=== PATIENT | female | born 1945 | race Caucasian/White ===

== ENCOUNTER 2023-06-18 14:50 | Outpatient (OUT) | payer MEDICARE, OTHER, SELFPAY ==
--- NOTE | 2023-06-18 15:54 | PM.CN ---
Consult Note: HPI Data of Consult Patient: new to practice Consult date: 06/18/23 Requesting Physician: Bo Murray MD Primary Care Provider: Non-Staff Physician, Consult Narrative Reason for consult: low back, left leg pain Narrative: 77yof who presents for evaluation. longstanding low back and left leg radiating pain, greater than 1 year. has engaged in physical therapy, continues in chiropractic therapy, with minimal benefit. has had hip addressed with outside pain clinic previously, but this did not help significantly. lumbar mri reviewed, which is significant for facet arthropathy in lower lumbar spine, as well as stenosis at l4-5 and l5-s1. utilizes tramadol 50mg very sparingly. denies adverse med side effects. cc:: CC: Bo Murray MD Review of Systems ROS Status of ROS 10 or more systems reviewed and unremarkable except as noted in history and below Exam Narrative Exam Narrative: Psych-alert and oriented x 3. Attentive and appropriate, constitutionally normal, displays normal mood and affect per situation. There are no obvious deficits in memory, reasoning, or intellect.? Skin-no obvious rashes, bruising, erythema noted to the patient's area of pain.? Extremities- extremities are warm with minimal edema and palpable pulses. Lumbar-tenderness to palpation noted in the lumbar spine and paraspinal musculature. Pain is elicited with flexion, extension, and lateral rotation of the lumbar spine. Range of motion is diminished with these motions. Facet loading maneuvers are positive..? Strength-noted to be unremarkable with the exception of decreased strength rated at 4 out of 5 in left quadriceps femoris, anterior tibialis. Sensory-no notable sensory deficits in the bilateral lower extremities to touch or pinprick in all dermatomal distributions with the exception to decreased sensation to the left L4, 5 dermatomal distribution Sacroiliac joint-tenderness over left PSIS. Hiren's maneuver positive on the left. Thigh thrust positive on the left. Coordination remains intact.? Gait remains non-antalgic. Assessment and Plan Assessment and Plan (1) Lumbar stenosis with neurogenic claudication: (2) Lumbar spondylosis: (3) Sacroiliac joint dysfunction of left side: Plan 77yof who presents for evaluation. failed conservative measures, as noted. imaging reviewed, as noted. given symptoms and imaging, prudent to attempt left l4-5, l5-s1 transforaminal epidural steroid injection under fluoroscopic guidance. may even benefit from left block of the nerve innervating the sacroiliac joint. she is in agreement. medications reviewed. agreed to refill tramadol 50mg bid prn when she needs refill. she expressed understanding. follow up after procedure.
== END 2023-06-18 14:51 | disposition home or self-care (01) ==
LOC: PM 14:50
PROVIDERS: Visit Provider Anesthesiology
DX: M48.062 Spinal stenosis, lumbar region with neurogenic claudication (principal); M47.816 Spondylosis without myelopathy or radiculopathy, lumbar region; M53.3 Sacrococcygeal disorders, not elsewhere classified
CPT/HCPCS: G0463

== ENCOUNTER 2023-07-30 07:58 | Day surgery (SDC) | payer MEDICARE, OTHER, SELFPAY ==
[2023-07-30 08:31] VITALS: BP 162/71; PULSE 87; RESP 16; TEMP 36.2; O2SAT 99
[2023-07-30 09:04] VITALS: BP 193/79; PULSE 93; RESP 16; O2SAT 97
[2023-07-30 09:05] VITALS: BP 181/78; PULSE 88; RESP 18; O2SAT 96
[2023-07-30] MEDS: 0.9 % SODIUM CHLORIDE 10 ML INJ (09:05)
[2023-07-30] MEDS: IOHEXOL 240 MG/ML - 10 ML VIAL INJ (09:06)
[2023-07-30] MEDS: LIDOCAINE HCL 2% PF 100 MG/5 ML VIAL INJ (09:06)
[2023-07-30] MEDS: BUPIVACAINE HCL 0.25% PF 25 MG/10 ML VIAL INJ (09:06)
[2023-07-30] MEDS: TRIAMCINOLONE ACETONIDE 40 MG/ML VIAL INJ (09:06)
--- NOTE | 2023-07-30 09:09 | P.ON_ITS ---
Date of procedure: 07/30/23 Pre-op diagnosis: Lumbar stenosis with neurogenic claudication Post-op diagnosis: same as pre-op Procedure: Procedure: Left L4-5, L5-S1 transforaminal epidural steroid injection Medications: Bupivacaine 0.25% 2cc, kenalog 80mg The patient was seen and examined in the preoperative holding area.? Informed consent was obtained and placed on the chart.? Patient was brought to the medical procedure unit and placed in the prone position where a timeout was completed verifying the correct patient, procedure site, position, and planned special equipment using sterile aseptic technique.? Under direct fluoroscopic visualization a 25-gauge Quincke tipped spinal needle was advanced to the designated neural foramen where contrast dye was injected to show adequate spread.? The needle was inserted at level left L4-5. There was no evidence of vascular or adverse uptake.? Epidural spread was appreciated.? The above- mentioned injectate was then placed in a 1.5 mL aliquot preceded by negative aspiration.? The needle was removed. The needle was inserted and the procedure repeated at level left L5-S1.? The surgery site was covered.? Patient was taken to the postprocedural recovery area and monitored for an appropriate length of time before found suitable for discharge in the accompaniment of a responsible adult. Anesthesia: Local Surgeon: Bo Murray Pathology: none sent Condition: stable Disposition: no change
--- NOTE | 2023-07-30 10:53 | PC.NURSE ---
Patient had numb and weak legs upon standing in post op. She stayed awhile longer in wheelchair for them to improve and voiced relief upon standing before discharge. She had her come to pick her up instead of driving home as planned out of safety.
== END 2023-07-30 10:45 | disposition home or self-care (01) ==
PROVIDERS: Visit Provider Anesthesiology
DX: M48.062 Spinal stenosis, lumbar region with neurogenic claudication (principal)
CPT/HCPCS: 64483; 64484; J0665; J3301; Q9966

== ENCOUNTER 2023-08-13 09:14 | Day surgery (SDC) | payer MEDICARE, OTHER, SELFPAY ==
[2023-08-13 10:03] VITALS: BP 175/70; PULSE 70; RESP 16; TEMP 36.3; O2SAT 99
[2023-08-13 10:39] VITALS: RESP 20
[2023-08-13] MEDS: BUPIVACAINE HCL 0.25% PF 25 MG/10 ML VIAL 2 ML INJ (10:43)
[2023-08-13] MEDS: IOHEXOL 240 MG/ML - 10 ML VIAL INJ (10:44)
[2023-08-13] MEDS: LIDOCAINE HCL 2% PF 100 MG/5 ML VIAL INJ (10:44)
[2023-08-13] MEDS: TRIAMCINOLONE ACETONIDE 40 MG/ML VIAL 20 MG INJ (10:45)
--- NOTE | 2023-08-13 10:45 | W.PM.PROCNOT ---
Date of procedure: 08/13/23 Pre-op diagnosis: Sacroiliitis, left Post-op diagnosis: same as pre-op Procedure: Procedure: Left block of the nerve innervating the sacroiliac joint Medications: Bupivacaine 0.25% 3cc, kenalog 40mg After informed consent was obtained, the patient was brought to the medical procedure unit and placed in the prone position, when a timeout was completed verifying correct patient, procedure, site, positioning, implant, and/or special equipment.? The skin overlying the area was prepped and draped in standard sterile fashion using alcohol.? A 25-gauge needle was inserted towards the left nerve innervating the sacroiliac joint under direct fluoroscopic imaging.? Needle tip was advanced until the nerve was encountered.? We instilled a total of 3 mL of solution.? Postoperatively needles were removed.? The patient tolerated the procedure well without complication.? The patient reported reduction in pain symptoms postoperatively. Anesthesia: Local Surgeon: Bo Murray Pathology: none sent Condition: stable Disposition: no change
[2023-08-13 10:46] VITALS: BP 210/95; BP 234/105; PULSE 84; PULSE 91; O2SAT 95; O2SAT 96
== END 2023-08-13 10:50 | disposition home or self-care (01) ==
PROVIDERS: Visit Provider Anesthesiology
DX: M46.1 Sacroiliitis, not elsewhere classified (principal)
CPT/HCPCS: 64451; J0665; J3301; Q9966

== ENCOUNTER 2023-08-30 09:32 | Outpatient (OUT) | payer MEDICARE, OTHER, SELFPAY ==
--- NOTE | 2023-08-30 09:55 | P.CN_ITS ---
Consult Note: HPI Data of Consult Patient: known to practice within the last 3 years Consult date: 06/18/23 Requesting Physician: Dalia Mooney NP Primary Care Provider: Non-Staff Physician, MD Consult Narrative Reason for consult: low back, left leg pain Narrative: 77yof who presents for evaluation. longstanding low back and left leg radiating pain, greater than 1 year. has engaged in physical therapy, continues in chiropractic therapy, with minimal benefit. has had hip addressed with outside pain clinic previously, but this did not help significantly. lumbar mri reviewed, which is significant for facet arthropathy in lower lumbar spine, as well as stenosis at l4-5 and l5-s1. utilizes tramadol 50mg very sparingly. denies adverse med side effects. recently underwent left L4-5 L5-S1 TFESI and left SIJ injection with >90% ongoing pain relief and functional improvement. Today pain 1/10. Patient very pleased with the outcomes and her improvement, has noticed mild pain in right SIJ. cc:: CC: Dalia Mooney NP Review of Systems ROS Status of ROS 10 or more systems reviewed and unremark able except as noted in history and below Meds Home Medications and Allergies Home Medications Medication Instructions Recorded Confirmed Type levothyroxine 50 mcg capsule 50 mcg PO DAILY 06/18/23 08/13/23 History mesalamine 1.2 gram tablet,delayed 1.2 g PO BID 06/18/23 08/13/23 History release simvastatin 10 mg tablet 10 mg PO DAILY 06/18/23 08/13/23 History Allergies Allergy/AdvReac Type Severity Reaction Status Date / Time hydromorphone [From Dilaudid] Allergy Palpitation Verified 08/13/23 10:07 s latex Allergy Verified 08/13/23 10:07 Sulfa (Sulfonamide Allergy Verified 08/13/23 10:07 Antibiotics) Exam Constitutional Documenting provider has reviewed patient's vital signs: yes Common normals: no apparent distress, oriented x3, healthy appearing, alert and well nourished General appearance: cooperative HENMT Common normals: normocephalic, hearing grossly normal bilaterally and moist oral mucous membranes Head and scalp: normocephalic Eye Common normals: PERRL Pupil: PERRL Neck & C-Spine Common normals: full ROM General: normal visual inspection Chest Common normals: inspection of chest normal Respiratory Common normals: normal respiratory effort, no retractions and no use of accessory muscles Back & Pelvis Lumbar spine/lower back: normal to inspection, lumbar ROM normal and straight leg raise negative bilaterally Sacroiliac joints: SI joints normal Neuro Common normals: oriented x3, CN's II-XII intact bilaterally, moves all extremities, no focal motor deficits, no sensory deficits noted and deep tendon reflexes 2+ bilaterally Sensorium/orientation: alert Motor exam: strength 5/5 throughout and no movement abnormalities noted Psych Common normals: mental status grossly normal, thought process normal, cooperative, affect normal, speech normal and activity/motor behavior normal Speech: normal speech Thought process: normal thought process Results Additional Findings Additional findings: I have checked an [place] report on this patient today and there are no aberrancies noted in the prescribing history.?? A drug screen was completed and reviewed within the last year, and if there has not been a drug screen completed we ordered one today to monitor higher risk, state monitored pain medication use. As part of providing excellent, safe, comprehensive care, the following was completed at our patient's visit: 1. A medication reconciliation and review to ensure accurate knowledge of current/active medications, including asking our patients to inform us about any jrll-[id number] medications or herbal remedies/nutritional supplements/alternative remedies. 2. A review to specifically ensure our patients have had annual screening for: elevated body mass index (BMI), tobacco use, screening for depression, and screening for unhealthy alcohol use. When screening is concerning, patients are provided with education and the specific recommendation to discuss the concerning health issue and treatment options with their primary care provider. Assessment and Plan Assessment and Plan (1) Lumbar stenosis with neurogenic claudication: (2) Lumbar spondylosis: (3) Sacroiliac joint dysfunction of left side: Plan doing very well, continue tylenol as needed and HEP as tolerated f/u 3 months, sooner if needed
== END 2023-08-30 09:33 | disposition home or self-care (01) ==
LOC: PM 09:32
PROVIDERS: Visit Provider Nurse Practitioner
DX: M48.062 Spinal stenosis, lumbar region with neurogenic claudication (principal); M47.816 Spondylosis without myelopathy or radiculopathy, lumbar region; M53.3 Sacrococcygeal disorders, not elsewhere classified
CPT/HCPCS: G0463

== ENCOUNTER 2023-11-28 09:15 | Outpatient (OUT) | payer MEDICARE, OTHER, SELFPAY ==
--- NOTE | 2023-11-28 09:43 | P.CN_ITS ---
Consult Note: HPI Data of Consult Patient: known to practice within the last 3 years Consult date: 06/18/23 Requesting Physician: Dalia Mooney NP Primary Care Provider: Non-Staff Physician, MD Consult Narrative Reason for consult: low back, left leg pain Narrative: 77yof who presents for evaluation. longstanding low back and left leg radiating pain, greater than 1 year. has engaged in physical therapy, continues in chiropractic therapy, with minimal benefit. has had hip addressed with outside pain clinic previously, but this did not help significantly. lumbar mri reviewed, which is significant for facet arthropathy in lower lumbar spine, as well as stenosis at l4-5 and l5-s1. utilizes tramadol 50mg very sparingly. denies adverse med side effects. Prior left L4-5 L5-S1 TFESI and left SIJ injection with >90% ongoing pain relief and functional improvement. Today pain in low back 2/10 increasing to 4/10 in the morning and with long car rides, no radicular pain. cc:: CC: Dalia Mooney NP Review of Systems ROS Status of ROS 10 or more systems reviewed and unremark able except as noted in history and below Musculoskeletal Reports: back pain Meds Home Medications and Allergies Home Medications ?Medication ?Instructions ?Recorded ?Confirmed ?Type levothyroxine 50 mcg capsule 50 mcg PO DAILY 06/18/23 08/13/23 History mesalamine 1.2 gram tablet,delayed 1.2 g PO BID 06/18/23 08/13/23 History release simvastatin 10 mg tablet 10 mg PO DAILY 06/18/23 08/13/23 History Allergies Allergy/AdvReac Type Severity Reaction Status Date / Time hydromorphone [From Dilaudid] Allergy Palpitation Verified 08/13/23 10:07 s latex Allergy Verified 08/13/23 10:07 Sulfa (Sulfonamide Allergy Verified 08/13/23 10:07 Antibiotics) Exam Constitutional Documenting provider has reviewed patient's vital signs: yes Common normals: no apparent distress, oriented x3, healthy appearing, alert and well nourished General appearance: cooperative HENKY Common normals: normocephalic, hearing grossly normal bilaterally and moist oral mucous membranes Head and scalp: normocephalic Eye Common normals: PERRL Pupil: PERRL Neck & C-Spine Common normals: full ROM General: normal visual inspection Chest Common normals: inspection of chest normal Respiratory Common normals: normal respiratory effort, no retractions and no use of accessory muscles Back & Pelvis Lumbar spine/lower back: normal to inspection, lumbar ROM normal and straight leg raise negative bilaterally Sacroiliac joints: SI joints normal Other: negative facet loading negative radiculopathy sensation intact BLE strength 5/5 in BLE Neuro Common normals: oriented x3, CN's II-XII intact bilaterally, moves all extremities, no focal motor deficits, no sensory deficits noted and deep tendon reflexes 2+ bilaterally Sensorium/orientation: alert Motor exam: strength 5/5 throughout and no movement abnormalities noted Psych Common normals: mental status grossly normal, thought process normal, cooperative, affect normal, speech normal and activity/motor behavior normal Speech: normal speech Thought process: normal thought process Results Additional Findings Additional findings: If on a controlled substance or opioids, I have checked an [place] report on this patient and there are no aberrancies noted in the prescribing history.??If on a controlled substance or opioid a drug screen was completed and reviewed within the last year, and if there has not been a drug screen completed we ordered one today to monitor higher risk, state monitored pain medication use. As part of providing excellent, safe, comprehensive care, the following was completed at our patient's visit: 1. A medication reconciliation and review to ensure accurate knowledge of current/active medications, including asking our patients to inform us about any [id number] medications or herbal remedies/nutritional supplements/alternative remedies. 2. A review to specifically ensure our patients have had annual screening for screening for depression, screening for tobacco use, and screening for unhealthy alcohol use. For concerning screenings had a discussion with the patient, provided patient education, and recommended follow-up with primary care provider when appropriate. If patient noted with a risk of falling, they received education on strength, gait, and balance training to prevent future risk of falling. Assessment and Plan Assessment and Plan (1) Lumbar stenosis with neurogenic claudication: (2) Lumbar spondylosis: (3) Sacroiliac joint dysfunction of left side: Plan doing very well, continue tylenol as needed and HEP as tolerated f/u as needed
== END 2023-11-28 09:16 | disposition home or self-care (01) ==
LOC: PM 09:15
PROVIDERS: Visit Provider Nurse Practitioner
DX: M48.062 Spinal stenosis, lumbar region with neurogenic claudication (principal); M47.816 Spondylosis without myelopathy or radiculopathy, lumbar region; M53.3 Sacrococcygeal disorders, not elsewhere classified
CPT/HCPCS: G0463

== ENCOUNTER 2024-03-20 09:31 | Outpatient (OUT) | payer MEDICARE, OTHER, SELFPAY ==
--- NOTE | 2024-03-20 09:54 | P.CN_ITS ---
Consult Note: HPI Data of Consult Patient: known to practice within the last 3 years Consult date: 06/18/23 Requesting Physician: Dalia Mooney NP Primary Care Provider: Non-Staff Physician, MD Consult Narrative Reason for consult: low back, left leg pain Narrative: 77yof who presents for evaluation. longstanding low back and left leg radiating pain, greater than 1 year. has engaged in physical therapy, continues in chiropractic therapy, with minimal benefit. has had hip addressed with outside pain clinic previously, but this did not help significantly. lumbar mri reviewed, which is significant for facet arthropathy in lower lumbar spine, as well as stenosis at l4-5 and l5-s1. utilizes tramadol 50mg very sparingly. denies adverse med side effects. Prior left L4-5 L5-S1 TFESI and left SIJ injection provided >90% improvement greater than 3 months. Patient would like to discuss repeating as she feels this is wearing off, pain today 3/10 increasing to 8/10 with standing walking lifting bending and activity. cc:: CC: Dalia Mooney NP Review of Systems ROS Status of ROS 10 or more systems reviewed and unremark able except as noted in history and below Musculoskeletal Reports: back pain and extremity pain; Denies: extremity swelling, muscle cramps or muscle weakness Meds Home Medications and Allergies Home Medications ?Medication ?Instructions ?Recorded ?Confirmed ?Type levothyroxine 50 mcg capsule 50 mcg PO DAILY 06/18/23 08/13/23 History mesalamine 1.2 gram tablet,delayed 1.2 g PO BID 06/18/23 08/13/23 History release simvastatin 10 mg tablet 10 mg PO DAILY 06/18/23 08/13/23 History Allergies Allergy/AdvReac Type Severity Reaction Status Date / Time hydromorphone [From Dilaudid] Allergy Palpitation Verified 08/13/23 10:07 s latex Allergy Verified 08/13/23 10:07 Sulfa (Sulfonamide Allergy Verified 08/13/23 10:07 Antibiotics) Exam Narrative Exam Narrative: Psych-alert and oriented x 3. Attentive and appropriate, constitutionally normal, displays normal mood and affect per situation. There are no obvious deficits in memory, reasoning, or intellect.? Skin-no obvious rashes, bruising, erythema noted to the patient's area of pain.? Extremities- extremities are warm with minimal edema and palpable pulses. Lumbar-tenderness to palpation noted in the lumbar spine and paraspinal musculature. Pain is elicited with flexion, extension, and lateral rotation of the lumbar spine. Range of motion is diminished with these motions. Facet loading maneuvers are positive..? Strength-noted to be unremarkable with the exception of decreased strength rated at 4 out of 5 in left quadriceps femoris, anterior tibialis. Sensory-no notable sensory deficits in the bilateral lower extremities to touch or pinprick in all dermatomal distributions with the exception to decreased sensation to the left L4, 5 dermatomal distribution Sacroiliac joint-tenderness over left PSIS. Hiren's maneuver positive on the left. Thigh thrust positive on the left. Coordination remains intact.? Gait remains non-antalgic. Results Additional Findings Additional findings: If on a controlled substance or opioids, I have checked an [place] report on this patient and there are no aberrancies noted in the prescribing history.??If on a controlled substance or opioid a drug screen was completed and reviewed within the last year, and if there has not been a drug screen completed we ordered one today to monitor higher risk, state monitored pain medication use. As part of providing excellent, safe, comprehensive care, the following was completed at our patient's visit: 1. A medication reconciliation and review to ensure accurate knowledge of current/active medications, including asking our patients to inform us about any [id number] medications or herbal remedies/nutritional supplement s/alternative remedies. 2. A review to specifically ensure our patients have had annual screening for screening for depression, screening for tobacco use, and screening for unhealthy alcohol use. For concerning screenings had a discussion with the patient, provided patient education, and recommended follow-up with primary care provider when appropriate. If patient noted with a risk of falling, they received education on strength, gait, and balance training to prevent future risk of falling. Assessment and Plan Assessment and Plan (1) Lumbar stenosis with neurogenic claudication: (2) Sacroiliac joint dysfunction of left side: (3) Lumbar spondylosis: Plan repeat left L4-5 L5-S1 TFESI under fluoroscopy as previous injection provided >80% improvement greater than 3 months, risks vs benefits reviewed consider repeat left SIJ injection if pain persists continue medications as tolerated and needed f/u after left L4-5 L5-S1 TFESI complete
== END 2024-03-20 09:32 | disposition home or self-care (01) ==
LOC: PM 09:31
PROVIDERS: Visit Provider Nurse Practitioner
DX: M48.062 Spinal stenosis, lumbar region with neurogenic claudication (principal); M53.3 Sacrococcygeal disorders, not elsewhere classified; M47.816 Spondylosis without myelopathy or radiculopathy, lumbar region
CPT/HCPCS: G0463

== ENCOUNTER 2024-04-14 07:30 | Day surgery (SDC) | payer MEDICARE, OTHER, SELFPAY ==
[2024-04-14 08:01] VITALS: BP 126/68; PULSE 65; TEMP 36.6; O2SAT 100
[2024-04-14 08:29] VITALS: BP 198/86; PULSE 83; O2SAT 99
[2024-04-14] MEDS: TRIAMCINOLONE ACETONIDE 40 MG/ML VIAL 80 MG INJ (08:31)
[2024-04-14] MEDS: 0.9 % SODIUM CHLORIDE 10 ML SYRINGE - SALINE FLUSH INJ (08:31)
[2024-04-14] MEDS: BUPIVACAINE HCL 0.25% PF 25 MG/10 ML VIAL INJ (08:31)
[2024-04-14] MEDS: IOHEXOL 240 MG/ML - 10 ML VIAL INJ (08:32)
[2024-04-14 08:33] VITALS: BP 177/79; PULSE 75; O2SAT 99
[2024-04-14] MEDS: LIDOCAINE HCL 2% 400 MG/20 ML MDV 5 ML INJ (08:33)
--- NOTE | 2024-04-14 08:33 | P.ON_ITS ---
Date of procedure: 04/14/24 Pre-op diagnosis: Pain due to lumbar stenosis with neurogenic claudication Post-op diagnosis: same as pre-op Procedure: Procedure: Left L4-5, L5-S1 transforaminal epidural steroid injection Medications: Bupivacaine 0.25% 2cc, lidocaine 2% 1cc, kenalog 80mg The patient was seen and examined in the preoperative holding area.? Informed consent was obtained and placed on the chart.? Patient was brought to the medical procedure unit and placed in the prone position where a timeout was completed verifying the correct patient, procedure site, position, and planned special equipment using sterile aseptic technique.? Under direct fluoroscopic visualization a 25-gauge Quincke tipped spinal needle was advanced to the designated neural foramen where contrast dye was injected to show adequate spread.? The needle was inserted at level left L4-5. There was no evidence of vascular or adverse uptake.? Epidural spread was appreciated.? The above- mentioned injectate was then placed in a 1.5 mL aliquot preceded by negative aspiration.? The needle was removed. The needle was inserted and the procedure repeated at level left L5-S1.? The surgery site was covered.? Patient was taken to the postprocedural recovery area and monitored for an appropriate length of time before found suitable for discharge in the accompaniment of a responsible adult. Anesthesia: Local Surgeon: Bo Murray Pathology: none sent Condition: stable Disposition: no change
== END 2024-04-14 08:40 | disposition home or self-care (01) ==
LOC: SURGOUT 07:30
PROVIDERS: Visit Provider Anesthesiology
DX: M48.062 Spinal stenosis, lumbar region with neurogenic claudication (principal)
CPT/HCPCS: 64483; 64484; J0665; J3301; Q9966

== ENCOUNTER 2024-04-24 09:05 | Outpatient (OUT) | payer MEDICARE, OTHER, SELFPAY ==
--- NOTE | 2024-04-24 09:13 | P.CN_ITS ---
Consult Note: HPI Data of Consult Patient: known to practice within the last 3 years Consult date: 06/18/23 Requesting Physician: Dalia Mooney NP Primary Care Provider: Non-Staff Physician, MD Consult Narrative Reason for consult: low back, left leg pain Narrative: 78yof who presents for evaluation. longstanding low back and left leg radiating pain, greater than 1 year. has engaged in physical therapy, continues in chiropractic therapy, with minimal benefit. has had hip addressed with outside pain clinic previously, but this did not help significantly. lumbar mri reviewed, which is significant for facet arthropathy in lower lumbar spine, as well as stenosis at l4-5 and l5-s1. utilizes tramadol 50mg very sparingly. denies adverse med side effects. Recently underwent repeat left L4-5 L5-S1 TFESI with >90% improvement ongoing cc:: CC: Dalia Mooney NP Review of Systems ROS Status of ROS 10 or more systems reviewed and unremark able except as noted in history and below Musculoskeletal Denies: back pain, extremity pain or joint pain PFSH PFSH Medical History Hypothyroid ?E03.9 - Hypothyroidism, unspecified (ICD-10) Palpitations ?R00.2 - Palpitations (ICD-10) Surgical History History of tubal ligation ?Z98.51 - Tubal ligation status (ICD-10) Meds Home Medications and Allergies Home Medications ?Medication ?Instructions ?Recorded ?Confirmed ?Type levothyroxine 50 mcg capsule 50 mcg PO DAILY 06/18/23 04/14/24 History mesalamine 1.2 gram tablet,delayed 1.2 g PO BID 06/18/23 04/14/24 History release simvastatin 10 mg tablet 10 mg PO DAILY 06/18/23 04/14/24 History Allergies Allergy/AdvReac Type Severity Reaction Status Date / Time hydromorphone [From Dilaudid] Allergy Palpitation Verified 04/14/24 08:05 s latex Allergy Rash Verified 04/14/24 08:05 Sulfa (Sulfonamide Allergy Rash Verified 04/14/24 08:05 Antibiotics) Exam Narrative Exam Narrative: Psych-alert and oriented x 3. Attentive and appropriate, constitutionally normal, displays normal mood and affect per situation. There are no obvious deficits in memory, reasoning, or intellect.? Skin-no obvious rashes, bruising, erythema noted to the patient's area of pain.? Extremities- extremities are warm with minimal edema and palpable pulses. Lumbar-tenderness to palpation noted in the lumbar spine and paraspinal musculature. Pain is elicited with flexion, extension, and lateral rotation of the lumbar spine. Range of motion is diminished with these motions. Facet loading maneuvers are positive..? Strength-noted to be unremarkable Sensory-no notable sensory deficits in the bilateral lower extremities to touch or pinprick in all dermatomal distributions Coordination remains intact.? Gait remains non-antalgic. Results Additional Findings Additional findings: If on a controlled substance or opioids, I have checked an [place] report on this patient and there are no aberrancies noted in the prescribing history.??If on a controlled substance or opioid a drug screen was completed and reviewed within the last year, and if there has not been a drug screen completed we ordered one today to monitor higher risk, state monitored pain medication use. As part of providing excellent, safe, comprehensive care, the following was completed at our patient's visit: 1. A medication reconciliation and review to ensure accurate knowledge of current/active medications, including asking our patients to inform us about any innr-lpf-[id number] medications or herbal remedies/nutritional supplements/alternative remedies. 2. A review to specifically ensure our patients have had annual screening for screening for depression, screening for tobacco use, and screening for unhealthy alcohol use. For concerning screenings had a discussion with the patient, provided patient education, and recommended follow-up with primary care provider when appropriate. If patient noted with a risk of falling, they received education on strength, gait, and balance training to prevent future risk of falling. Assessment and Plan Assessment and Plan (1) Lumbar stenosis with neurogenic claudication: (2) Sacroiliac joint dysfunction of left side: (3) Lumbar spondylosis: Plan patient reports 100% improvement in pain and functional ability, no pain since injection continue PRN tylenol as needed continue HEP as tolerated f/u as needed
== END 2024-04-24 09:06 | disposition home or self-care (01) ==
LOC: PM 09:05
PROVIDERS: Visit Provider Nurse Practitioner
DX: M48.062 Spinal stenosis, lumbar region with neurogenic claudication (principal); M47.816 Spondylosis without myelopathy or radiculopathy, lumbar region; M53.3 Sacrococcygeal disorders, not elsewhere classified
CPT/HCPCS: G0463

== ENCOUNTER 2024-10-27 13:05 | Outpatient (OUT) | payer MEDICARE, OTHER, SELFPAY ==
--- NOTE | 2024-10-27 14:02 | P.CN_ITS ---
Consult Note: HPI Data of Consult Patient: known to practice within the last 3 years Consult date: 10/27/24 Requesting Physician: Bo Murray MD Primary Care Provider: Non-Staff Physician, Consult Narrative Reason for consult: low back, left leg pain Narrative: 79yof who presents for assessment. notes worsening pain from low back into left leg. same type of pain that she had previously, which was treated with lumbar tfesi. previously had significant relief of >50% for >3 months. imaging consistent with stenosis at l4-5 and l5-s1. continues to engage in a series of provider directed home exercises >6 weeks, without lasting benefit. uses otc pain meds. cc:: CC: Bo Murray MD Review of Systems ROS Status of ROS 10 or more systems reviewed and unremark able except as noted in history and below [facility] Medical History Hypothyroid ?E03.9 - Hypothyroidism, unspecified (ICD-10) Palpitations ?R00.2 - Palpitations (ICD-10) Surgical History History of tubal ligation ?Z98.51 - Tubal ligation status (ICD-10) Meds Home Medications and Allergies Home Medications ?Medication ?Instructions ?Recorded ?Confirmed ?Type levothyroxine 50 mcg capsule 50 mcg PO DAILY 06/18/23 04/14/24 History mesalamine 1.2 gram tablet,delayed 1.2 g PO BID 06/18/23 04/14/24 History release simvastatin 10 mg tablet 10 mg PO DAILY 06/18/23 04/14/24 History Allergies Allergy/AdvReac Type Severity Reaction Status Date / Time hydromorphone (From Dilaudid) Allergy Palpitation Verified 04/14/24 08:05 s latex Allergy Rash Verified 04/14/24 08:05 Sulfa (Sulfonamide Allergy Rash Verified 04/14/24 08:05 Antibiotics) Exam Narrative Exam Narrative: Psych-alert and oriented x 3. Attentive and appropriate, constitutionally normal, displays normal mood and affect per situation. There are no obvious deficits in memory, reasoning, or intellect.? Skin-no obvious rashes, bruising, erythema noted to the patient's area of pain.? Extremities- extremities are warm with minimal edema and palpable pulses. Lumbar-tenderness to palpation noted in the lumbar spine and paraspinal musculat ure. Pain is not elicited with flexion, extension, and lateral rotation of the lumbar spine. Range of motion is not diminished with these motions. Facet loading maneuvers are negative.? Strength-noted to be unremarkable with the exception of decreased strength rated at 4 out of 5 in left quadriceps femoris, anterior tibialis. Sensory-no notable sensory deficits in the bilateral lower extremities to touch or pinprick in all dermatomal distributions with the exception to decreased sensation to the left L4, 5 dermatomal distribution Coordination remains intact.? Gait remains non-antalgic. Assessment and Plan Assessment and Plan (1) Lumbar stenosis with neurogenic claudication: Plan 79yof who presents for assessment. failed conservative measures, as noted. imaging reviewed, as noted. given symptoms and previous relief, prudent to attempt left l4-5, l5-s1 tfesi under fluoroscopic guidance. she is in agreement. meds reviewed, no changes. follow up after procedure.
== END 2024-10-27 13:06 | disposition home or self-care (01) ==
LOC: PM 13:07
PROVIDERS: Visit Provider Anesthesiology
DX: M48.062 Spinal stenosis, lumbar region with neurogenic claudication (principal)
CPT/HCPCS: G0463

== ENCOUNTER 2024-11-10 08:20 | Day surgery (SDC) | payer MEDICARE, OTHER, SELFPAY ==
[2024-11-10 08:25] VITALS: BP 167/68; PULSE 93; TEMP 36.2; O2SAT 99
[2024-11-10] MEDS: IOHEXOL 240 MG/ML - 10 ML VIAL INJ (09:37)
[2024-11-10] MEDS: BUPIVACAINE HCL 0.25% PF 25 MG/10 ML VIAL INJ (09:37)
[2024-11-10] MEDS: 0.9 % SODIUM CHLORIDE 10 ML SYRINGE - SALINE FLUSH INJ (09:37)
[2024-11-10] MEDS: LIDOCAINE HCL 2% 400 MG/20 ML MDV 3 ML INJ (09:38)
[2024-11-10 09:39] VITALS: BP 181/74; BP 209/85; PULSE 78; PULSE 84; O2SAT 98
--- NOTE | 2024-11-10 09:40 | P.ON_ITS ---
Date of procedure: 11/10/24 Pre-op diagnosis: Pain due to lumbar stenosis with neurogenic claudication Post-op diagnosis: same as pre-op Procedure: Procedure: Left L4-5, L5-S1 transforaminal epidural steroid injection Medications: Bupivacaine 0.25% 2cc, lidocaine 2% 1cc, depomedrol 80mg The patient was seen and examined in the preoperative holding area.? Informed consent was obtained and placed on the chart.? Patient was brought to the medical procedure unit and placed in the prone position where a timeout was completed verifying the correct patient, procedure site, position, and planned special equipment using sterile aseptic technique.? Under direct fluoroscopic visualization a 25-gauge Quincke tipped spinal needle was advanced to the designated neural foramen where contrast dye was injected to show adequate spread.? The needle was inserted at level left L4-5. There was no evidence of vascular or adverse uptake.? Epidural spread was appreciated.? The above- mentioned injectate was then placed in a 1.5 mL aliquot preceded by negative aspiration.? The needle was removed. The needle was inserted and the procedure repeated at level left L5-S1.? The surgery site was covered.? Patient was taken to the postprocedural recovery area and monitored for an appropriate length of time before found suitable for discharge in the accompaniment of a responsible adult. Anesthesia: Local Surgeon: Bo Murray Pathology: none sent Condition: stable Disposition: no change
[2024-11-10] MEDS: METHYLPREDNISOLONE ACETATE 40 MG/ML VIAL 80 MG INJ (09:44)
== END 2024-11-10 09:44 | disposition home or self-care (01) ==
LOC: SURGOUT 08:22
PROVIDERS: Visit Provider Anesthesiology
DX: M48.062 Spinal stenosis, lumbar region with neurogenic claudication (principal); M54.50 Low back pain, unspecified
CPT/HCPCS: 64483; 64484; J0665; J1010; Q9966

== ENCOUNTER 2024-11-19 12:39 | Outpatient (OUT) | payer MEDICARE, OTHER, SELFPAY ==
--- NOTE | 2024-11-19 12:49 | PM.CN ---
Consult Note: HPI Data of Consult Patient: known to practice within the last 3 years Requesting Physician: Dalia Mooney NP Primary Care Provider: Non-Staff Physician, Consult Narrative Reason for consult: low back, left leg pain Narrative: 79yof who presents for assessment. imaging consistent with stenosis at l4-5 and l5-s1. continues to engage in a series of provider directed home exercises >6 weeks, without lasting benefit. uses otc pain meds. recently underwent repeat left L4-5 L5-S1 TFESI with >50% improvement ongoing, noticing mild coccyx pain. today pain 2/10 increasing to 3/10. cc:: CC: Dalia Mooney NP Review of Systems ROS Status of ROS 10 or more systems reviewed and unremarkable except as noted in history and below [facility] Medical History Hypothyroid ?E03.9 - Hypothyroidism, unspecified (ICD-10) Palpitations ?R00.2 - Palpitations (ICD-10) Surgical History History of tubal ligation ?Z98.51 - Tubal ligation status (ICD-10) Meds Home Medications and Allergies Home Medications ?Medication ?Instructions ?Recorded ?Confirmed ?Type levothyroxine 50 mcg capsule 50 mcg PO DAILY 06/18/23 11/10/24 History mesalamine 1.2 gram tablet,delayed 1.2 g PO BID 06/18/23 11/10/24 History release simvastatin 10 mg tablet 10 mg PO DAILY 06/18/23 11/10/24 History Allergies Allergy/AdvReac Type Severity Reaction Status Date / Time hydromorphone (From Dilaudid) Allergy Palpitation Verified 11/10/24 08:29 s latex Allergy Rash Verified 11/10/24 08:29 Sulfa (Sulfonamide Allergy Rash Verified 11/10/24 08:29 Antibiotics) Exam Constitutional Documenting provider has reviewed patient's vital signs: yes Common normals: no apparent distress, oriented x3, healthy appearing, alert and well nourished General appearance: cooperative HENHI Common normals: normocephalic, hearing grossly normal bilaterally and moist oral mucous membranes Head and scalp: normocephalic Eye Common normals: PERRL Pupil: PERRL Neck & C-Spine Common normals: full ROM General: normal visual inspection Chest Common normals: inspection of chest normal Respiratory Common normals: normal respiratory effort, no retractions and no use of accessory muscles Back & Pelvis Lumbar spine/lower back: pain with ROM and lumbar spinal tenderness Lumbar spinal tenderness location: L4 and L5; ROM not limited Sacroiliac joints: SI joint(s) abnormal Other: mildly positive left chantale(patricks), gaenslens, thigh thrust, compression test positive facet loading L4-S1 Neuro Common normals: oriented x3 Sensorium/orientation: alert Psych Common normals: mental status grossly normal, thought process normal, cooperative, affect normal, speech normal and activity/motor behavior normal Speech: normal speech Thought process: normal thought process Assessment and Plan Assessment and Plan (1) Lumbar stenosis with neurogenic claudication: (2) Lumbar spondylosis: (3) Sacroiliac joint dysfunction of left side: Plan defer additional injection therapy at this time, continue current medications. briefly discussed bilateral L4-5 L5-S1 facet medial branch block x2 working towards RFA in the future for axial facet mediated low back pain, will consider if pain worsens. f/u PRN at this time
== END 2024-11-19 12:40 | disposition home or self-care (01) ==
LOC: PM 12:39
PROVIDERS: Visit Provider Nurse Practitioner
DX: M48.062 Spinal stenosis, lumbar region with neurogenic claudication (principal); M47.816 Spondylosis without myelopathy or radiculopathy, lumbar region; M53.3 Sacrococcygeal disorders, not elsewhere classified
CPT/HCPCS: G0463